=== PATIENT | male | born 1960 | race Two or more races ===

== ENCOUNTER 2022-09-19 13:56 | Emergency (ER) | payer OTHER ==
[~2022-09-19] VITALS: Ht 165.1 cm; Wt 68.0 kg
--- NOTE | 2022-09-19 15:00 | NUR ---
DR MENA AT BEDSIDE FOR EVAL.
--- NOTE | 2022-09-19 17:29 | NUR ---
PT SEEN AND EVALUATED BY DR MENA. WAS OBSERVED FOR MORE THAN 3 HOURS. PT IS AWAKE, VERBALLY RESPONSIVE. PICKED UP BY FAMILY IN STABLE CONDITION.
[2022-09-19 17:32] VITALS: BP 142/87
== END 2022-09-19 17:33 | disposition home or self-care (01) ==
LOC: ER 13:58
DX: G40.909 Epilepsy, unspecified, not intractable, without status epilepticus (principal); S00.81XA Abrasion of other part of head, initial encounter; W18.30XA Fall on same level, unspecified, initial encounter; Y93.89 Activity, other specified; Y92.89 Other specified places as the place of occurrence of the external cause; Y99.8 Other external cause status
CPT/HCPCS: 70450-TC; 82962-TC

== ENCOUNTER 2023-01-13 17:48 | Emergency (ER) | payer OTHER ==
[~2023-01-13] VITALS: Ht 162.6 cm; Wt 65.8 kg
--- NOTE | 2023-01-13 17:55 | NUR ---
BIB [facility] AND [facility], SEIZURE WHILE WALKING WITH FAMILY LAST ALCOHOL INTAKE WAS 1 HR AGO,BLOOD SUGAR 121
--- NOTE | 2023-01-13 18:25 | NUR ---
pt in bed comfortable. MD at bedside. IV started on RFA 20g, blood collected and sent
[2023-01-13] MEDS ORDERED: LEVETIRACETAM (500MG) 1,000 MG in IV NS 0.9% 100 ML IV SCH (18:30)
[2023-01-13] MEDS ORDERED: IV NS 0.9% 1,000 ML BAG IV ONE (18:30)
--- NOTE | 2023-01-13 18:35 | NUR ---
pt picked up by radiology
--- NOTE | 2023-01-13 18:54 | NUR ---
pt brought back from radiology. Keppra given IV on RFA 20g. BS 108
--- NOTE | 2023-01-13 19:30 | NUR ---
Adendom IV NS started 1827/ stopped at 1927 IV Keppra started 1850/ stopped at 1927
[2023-01-13 19:31] LABS: CALCIUM, SERUM 8.9 mg/dL (8.5-10.1); CARBON DIOXIDE 26 mmol/L (21-32); CHLORIDE 103 mmol/L (98-107); CREATININE 0.8 mg/dL (0.6-1.3); GLUCOSE 110 mg/dL (74-106); POTASSIUM 3.8 mmol/L (3.5-5.1); SODIUM SERUM 137 mmol/L (136-145); UREA NITROGEN, BLOOD 8 mg/dL (7-18)
[2023-01-13 19:37] LABS: ALANINE AMINOTRANSFERASE 20 U/L (12-78); ALBUMIN 3.4 g/dL (3.4-5.0); ALKALINE PHOSPHATASE 62 U/L (46-116); ASPARTATE AMINOTRANSFERASE 27 U/L (15-37); BILIRUBIN,DIRECT 0.1 mg/dL (0.0-0.2); BILIRUBIN,TOTAL 0.4 mg/dL (0.2-1.0); TOTAL PROTEIN, SERUM 7.3 g/dL (6.4-8.2)
--- NOTE | 2023-01-13 20:27 | NUR ---
IV removed. Catheter intact and site benign. Pressure and 4x4 applied to site. No bleeding noted.Patient discharged to home in stable condition. Written and verbal after care instructions given. Patient verbalizes understanding of instruction.
[2023-01-13 20:28] VITALS: BP 135/80
[2023-01-13 20:39] LABS: BASOPHILS # (AUTO) 0.1 K/uL (0.0-0.2); BASOPHILS % (AUTO) 0.7 % (0.0-2.0); EOSINOPHILS % (AUTO) 0.9 % (0.0-6.0); HEMATOCRIT 51 % (39-51); HEMOGLOBIN 16.2 g/dL (13.5-17.5); LYMPHOCYTES % (AUTO) 26.5 % (20.0-44.0); MEAN CORPUSCULAR HGB CONC 32 g/dl (31.0-36.0); MEAN CORPUSCULAR VOLUME 87 fL (80-96); MONOCYTES # (AUTO) 0.6 K/uL (0.1-1.30); NEUTROPHILS # (AUTO) 4.9 K/uL (1.8-8.9); NEUTROPHILS % (AUTO) 63.9 % (43.0-81.0); PLATELET COUNT (AUTO) 273 K/uL (150-450); RED BLOOD CELL COUNT(AUTO) 5.79 MIL/uL (4.5-6.0); WHITE BLOOD COUNT (AUTO) 7.6 K/uL (4.3-11.0)
[2023-01-13 23:11] LABS: BASOPHILS % (MANUAL) 0 % (0.0-2.0); EOSINOPHILS % (MANUAL) 0 % (0-4); LYMPHOCYTES % (MANUAL) 24 % (16-48); MONOCYTES % (MANUAL) 5 % (0-11.0); NEUTROPHILS % (MANUAL) 71 (42-76)
== END 2023-01-13 20:27 | disposition home or self-care (01) ==
LOC: ER 17:50
DX: R56.9 Unspecified convulsions (principal); F17.200 Nicotine dependence, unspecified, uncomplicated; F10.129 Alcohol abuse with intoxication, unspecified; Y90.9 Presence of alcohol in blood, level not specified
CPT/HCPCS: 99285; 96365; 70450; 71045; 93005; 85025; 80048; 80076; 36415; 84484; 82962; 85007; J7030 ×2; J1953